=== PATIENT | male | born 1960 | race Hispanic/Latino ===

== ENCOUNTER 2017-03-08 08:52 | Day surgery (SDC) | payer BC ==
[~2017-03-08 08:52] MED LIST: RINGER'S SOLUTION,LACTATED 1,000 ML IV PRN; ceFAZolin SODIUM 1 GM VIAL IV PRN
[2017-03-08] MEDS ORDERED: BUPIVACAINE HCL 50 ML VIAL IJ ONE ×2 (11:02→11:30)
[2017-03-08] MEDS: TRIAMCINOLONE ACETONIDE 40 MG/ML VIAL IJ PRN ×2 (11:02→11:30)
[2017-03-08] MEDS ORDERED: RINGER'S SOLUTION,LACTATED 1,000 ML IV ONE (11:50)
--- NOTE | 2017-03-08 12:19 | OR ---
Operative Report - Dictated Report Narrative: Date: 03/08/2017 Surgeon: Ramo Fernández M.D. Cpas: Trenton Avalos PA-C Preoperative diagnosis: Right Thumb carpometacarpal arthrosis, right wrist arthrosis Postoperative diagnosis: Right Thumb carpometacarpal arthrosis, right wrist arthrosis Operation: Right Thumb resection suspension arthroplasty of the carpo- metacarpal joint, injection of right wrist radial-carpal joint Retained implants: 0.45 smooth Yuki wire pin cap Anesthesia: General plus regional Tourniquet time: 78 Minutes at 250 mmHg Estimated blood loss: Minimal Drains: None Specimen: Bone for disposal Complications: None Indications: Mr. Moreno is a 56-year-old gentleman who is seen in the clinic for complaints of basilar thumb and right wrist pain. That failed conservative measures including but not limited to injections, medications, splinting, activity modification, and or therapy. Radiographs revealed advanced arthrosis of the thumb carpometacarpal joint and they wish to proceed with surgical treatment. The risks, benefits, and alternatives were discussed in the clinic. The risks of , blood clots, bleeding, infection, damage to nerve, tendon, or blood vessels, stiffness, weakness, persistent pain, deformity, and need for additional procedures were reviewed. He wished to proceed with the procedure. Procedure: After marking the correct extremity in the preoperative holding area, the patient was taken to the operating room and timeout was performed. IV antibiotics consisting of Ancef were administered. A regional followed by general anesthetic was induced by anesthesia per my request. A well-padded tourniquet was applied to the upper arm. The surgical arm was then prepped and draped in a standard sterile fashion. After exsanguinating the extremity, the tourniquet was inflated to 250 mmHg. A longitudinal incision approximately 6 cm in length was made centered over the dorsal aspect of the thumb carpometacarpal joint. This was bluntly dissected down to the subcutaneous tissue protecting the dorsal branch of the radial nerve and any other cutaneous nerves and vessels encountered. A capsulotomy and periosteal elevation was performed between the extensor pollicis brevis and extensor pollicis longus. The base of the thumb metacarpal as well as the trapezium were exposed and the soft tissues and capsule were elevated off this. Utilizing a oscillating saw, approximately 5 mm of the base of the thumb metacarpal was removed including the arthritic joint surface with the marginal osteophytes. The trapezium was then quartered and excised using a combination of ronguer and [place] blade. Care was taken to protect the deep flexor carpi radialis tendon. Once the trapezium was fully excised the flexor carpi radialis tendon was dissected down to its insertion on the index metacarpal and tagged with an umbilical tape. Attention was then turned to the procurement of the flexor carpal radialis tendon over the volar forearm. 2 small transverse incisions were made at the distal and musculotendinous portions of the flexor carpi radialis tendon. Blunt dissection was carried through subcutaneous tissue down to the flexor tendon. The flexor carpal radius tendon was tagged distally and then transected at the muscle tendinous junction proximally and mobilized into the thumb wound. The muscle attached to the tendon was then removed using a scalpel. The tendon was wrapped in a moist Ray-Gio sponge. A bur was utilized in order to make a tunnel through the base of the thumb metacarpal approximately a centimeter distal exiting over the volar and ulnar aspect of the thumb metacarpal in line with the thumb nail. This was enlarged to accommodate the tendon and the bony edges were burred to make this a smooth return of the tendon on itself. The tendon was then passed through the tunnel without any complications. A 0.45 smooth Yuki wire was placed through the thumb metacarpal into the index metacarpal using mini C-arm to confirm placement of the thumb in a pinch boat engine mechanic position suspended at the level of the index metacarpal. 4-0 Ethibond suture was placed deep in the capsule in order to stabilize the tendon graft. 4-0 Ethibond was utilized in order to repair the tendon back to itself as well as to the periosteum as it exited the tunnel. The tendon was then rolled into an anchovy orientation and secured with 4-0 Ethibond suture. 2 Noah needles were placed in order to pass the previously placed 4-0 Ethibond which was deep in the resected trapezium area and passed through the tendon in order to secure the tendon into the base of the wound. This allowed for filling of the defect from the prior removed trapezium. The wounds were then thoroughly irrigated. Tourniquet was deflated and hemostasis was obtained with bipolar cautery. 4-0 nylon was used to close the tendon procurement site. 4-0 Vicryl was utilized in order to repair the joint capsule and periosteum onto the tendon graft. Subcutaneous 4-0 Vicryl and 4-0 nylon on the skin were utilized in order to close the thumb wound. The K wire was bent and capped outside the skin. A wrist injection was then placed through a dorsal injection site approximately a centimeter distal to Afshan's tubercle. This consisted of 40 mg Kenalog and 1 mL of 0.5% Marcaine without epinephrine. Xeroform, 4 x 4's, soft roll, and a well-padded thumb spica splint were applied and the patient was awoken and transferred to postanesthesia care unit in stable condition. All sponge, needle, sharp, and instrument counts were correct prior to closing the wounds.
[2017-03-08 14:11] VITALS: BP 131/82
--- NOTE | 2017-03-08 14:54 | OR ---
Anesthesia Procedure Note - Anesthesia Procedure Note Date of Service: 03/08/17 Narrative: Vital Signs - Last Taken Temp 36.2 C L 03/08/17 12:48 Pulse 72 03/08/17 13:35 Resp 16 03/08/17 13:35 BP 131/82 03/08/17 13:35 Pulse Ox 97 03/08/17 13:35 O2 Oxygen Delivery Method Room Air 03/08/17 14:49 ANESTHESIA PROCEDURE NOTE Date of Procedure: 03/08/2017 Time of procedure: 9:45 AM. Performed by: CHAVEZ Boyd CRNA, MSN Fishing Lure Assembler: Chastity Christine RN. Preprocedure diagnosis: Post thumb arthroplasty pain relief. Post procedure diagnosis: Same. Procedure: Right Axillary nerve block. Indications: Post right CMC arthroplasty surgery pain relief. Findings: See below. Details of the procedure: The patient was brought to OR #2 and placed in the supine position. After adequate sedation, the patient was prepped with chlorhexidine and using ultrasound guidance the right axillary artery, radial, ulnar and medial segments of the brachial plexus were identified and lidocaine 1 % was infiltrated to the skin of the intended injection site. Under ultrasound guidance the individual nerve bundles were approached until an arm response was identified on nerve stimulator. Once the stimulator response was effective at less than 0.5 mV and greater than 0.3 mV the femoral nerve was surrounded with 40 mL bupivacaine 0.5% with 1-200,000 epinephrine. An axillary ring was also injected with the same solution. Please see radiology/ultrasound report for details and images of the procedure. EBL: 0 Fluids: N/A. Specimen: N/A. Post procedure condition: The patient tolerated the procedure well. No complications were noted. Thank you for this consultation. Devin Proctor CRNA, [employer], MSN
== END 2017-03-08 08:53 | disposition home or self-care (01) ==
LOC: AMB 08:52
PROVIDERS: ATTEND Orthopaedic Surgery
PROC: 0RRS07Z Replacement of Right Carpometacarpal Joint with Autologous Tissue Substitute, Open Approach (ICD-10-PCS; principal; 2017-03-08 12:00)
DX: M19.041 Primary osteoarthritis, right hand (principal); E11.9 Type 2 diabetes mellitus without complications; E78.5 Hyperlipidemia, unspecified; G47.33 Obstructive sleep apnea (adult) (pediatric); Z87.891 Personal history of nicotine dependence; Z68.28 Body mass index [BMI] 28.0-28.9, adult

== ENCOUNTER 2017-09-18 08:40 | Day surgery (SDC) | payer BC ==
[~2017-09-18 08:40] MED LIST changes: +HYDROmorphone HCL 2 MG/ML VIAL IV PRN; +oxyCODONE HCL/ACETAMINOPHEN 1 TAB TABLET PO PRN
[2017-09-18] MEDS ORDERED: RINGER'S SOLUTION,LACTATED 1,000 ML IV ONE ×2 (09:30→11:15)
[2017-09-18] MEDS ORDERED: BUPIVACAINE HCL 50 ML VIAL IJ ONE ×2 (10:45)
--- NOTE | 2017-09-18 12:31 | POSTOP NO ---
Date of Surgery: 09/18/17 Patient Tolerated the Procedure: Well Post Operative Diagnosis/Procedures: Bowling Or Skating Front Desk Clerk: Trenton Avalos PA-C Post-operative Diagnosis: Displaced tendon graft status post suspension arthroplasty and right thumb Finding: Above Procedure: Revision suspension arthroplasty right thumb Estimated Blood Loss: Minimal Specimens: None
[2017-09-18 14:08] VITALS: BP 153/73
== END 2017-09-18 08:41 | disposition home or self-care (01) ==
LOC: AMB 08:40
PROVIDERS: ATTEND Orthopaedic Surgery
PROC: 0RQS0ZZ Repair Right Carpometacarpal Joint, Open Approach (ICD-10-PCS; principal; 2017-09-18)
DX: E78.5 Hyperlipidemia, unspecified; E11.9 Type 2 diabetes mellitus without complications; Z87.891 Personal history of nicotine dependence; G47.33 Obstructive sleep apnea (adult) (pediatric); M18.11 Unilateral primary osteoarthritis of first carpometacarpal joint, right hand; T84.4 Mechanical complication of other internal orthopedic devices, implants and grafts